=== PATIENT | male | born 1940 | race Caucasian/White ===

== ENCOUNTER 2022-07-11 09:43 | Emergency (ER) | payer MEDICARE, BC, SELFPAY ==
--- NOTE | ~2022-07-11 | XR_ITS ---
EXAMINATION: XR foot RT min 3V DATE: 07/11/2022 10:36 INDICATION: Plantar right foot pain TECHNIQUE: Dorsoplantar, two oblique and lateral views of the right foot were obtained. COMPARISON: None. FINDINGS: Alignment is normal. No fracture. Mild polyarticular osteoarthritis at the first metatarsophalangeal, calcaneocuboid and several tarsal metatarsal and interphalangeal joints. No erosions to suggest an i nflammatory arthritis. Small Achilles and plantar calcaneal spurs. IMPRESSION: 1. 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 Reviewed, dictated and finalized at location A. IMPRESSION: 1. Degenerative changes including mild polyarticular osteoarthritis in the righ t foot and small Achilles and plantar calcaneal spurs.
[2022-07-11 09:58] VITALS: BP 112/51; PULSE 86; RESP 18; TEMP 35.8; O2SAT 95
--- NOTE | 2022-07-11 10:20 | ED.EXTPRO ---
HPI - Extremity Problem General Chief complaint: Extremity Problem,Nontraumatic Stated complaint: Right Foot Pain Time Seen by Provider: 07/11/22 10:21 Source: patient and RN notes reviewed Mode of arrival: ambulatory Limitations: no limitations History of Present Illness HPI Narrative: 82-year-old male presents with concern for right foot pain. He reports pain started yesterday after working in the yard He denies any direct injury or trauma. He reports pain worsens with weightbearing and slightly worsens with flexing the ankle. He denies any redness, swelling, warmth, open skin, bruising. He reports after sleeping the pain mildly improved, however worsens again with weightbearing MD Complaint: extremity pain Related Data Home Medications Medication Instructions Recorded Confirmed aspirin 81 mg tablet 81 mg PO DAILY 07/11/22 07/11/22 atorvastatin 40 mg tablet 40 mg PO DAILY 07/11/22 07/11/22 clopidogrel 75 mg tablet 75 mg PO DAILY 07/11/22 07/11/22 fenofibrate nanocrystallized 145 145 mg PO DAILY 07/11/22 07/11/22 mg tablet ivabradine 5 mg tablet (Corlanor) 5 mg PO DAILY 07/11/22 07/11/22 nebivolol 5 mg tablet (Bystolic) 5 mg PO DAILY 07/11/22 07/11/22 sacubitril 24 mg-valsartan 26 mg 1 tablet PO DAILY 07/11/22 07/11/22 tablet (Entresto) spironolactone 25 mg tablet 25 mg PO DAILY 07/11/22 07/11/22 Allergies Allergy/AdvReac Type Severity Reaction Status Date / Time No Known Allergies Allergy Verified 07/11/22 10:03 Review of Systems Review of Systems: CONSTITUTIONAL: Denies malaise, chills, sweats, or fever. SKIN: Denies rash or itching, open skin, laceration, abrasion, redness, warmth, swelling. MUSCULOSKELETAL: Reports right foot pain NEUROLOGIC: Denies numbness, weakness All systems reviewed & are unremarkable except as noted in HPI and below PMFSH Comments At time of signature, agree with nursing past medical, surgical, social and family history. There is no relevant family history pertinent to the presenting complaint Exam Narrative: GENERAL: Well-appearing, well-nourished, and in no acute distress. HEAD: Normocephalic, atraumatic. EYES: PERRLA, conjunctivae clear NECK: Supple. CHEST: Speaks in full sentences. No respiratory distress. HEART: Regular rate and rhythm. Normal and equal peripheral pulses. EXTREMITIES: Right ankle, foot, digits have normal strength and sensation, normal range of motion. No edema or ecchymosis. 5/5 strength with digit and ankle flexion and extension. Normal sensation with sensitivity to light touch and pain. Mild midfoot pedal tenderness. No open wounds, no skin tenting, no devitalized tissue or atrophy, no trophic changes, no obvious deformity, alignment normal, nearby joints and structures intact. Distal pulses palpable and equal bilaterally, skin warm, dry, pink. Capillary refill less than 3 seconds. SKIN: Warm, dry, no rash. NEURO: Alert and oriented x3. PSYCH: Normal mood and affect Course Course Emergency Course: Patient is aware of diagnosis, understands and agrees to treatment plan. Anticipatory guidance given. Patient agrees to follow-up as directed and is aware of reasons to seek care at the emergency department. Portions of this record may have been created with voice recognition software Level of Care: Express Care Visit Vital Signs Vital signs: Vital Signs Temperature 96.5 F L 07/11/22 09:58 Pulse Rate 86 07/11/22 09:58 Respiratory Rate 18 07/11/22 09:58 Blood Pressure 112/51 L 07/11/22 09:58 Pulse Oximetry 95 07/11/22 09:58 Oxygen Delivery Room Air 07/11/22 09:58 Temperature 96.5 F L 07/11/22 09:58 Pulse Rate 86 07/11/22 09:58 Respiratory Rate 18 07/11/22 09:58 Blood Pressure 112/51 L 07/11/22 09:58 Pulse Oximetry 95 07/11/22 09:58 Oxygen Delivery Room Air 07/11/22 09:58 Reviewed. MDM - Extremity (Nontraumatic) MDM Narrative Medical decision making narrative: Patients pain is consistent with musculoske
== END 2022-07-11 10:57 | disposition home or self-care (01) ==
PROVIDERS: Emergency Provider Nurse Practitioner
DX: M77.31 Calcaneal spur, right foot (principal); I11.0 Hypertensive heart disease with heart failure; I50.9 Heart failure, unspecified; Z95.5 Presence of coronary angioplasty implant and graft; E78.00 Pure hypercholesterolemia, unspecified; I25.2 Old myocardial infarction; Z95.0 Presence of cardiac pacemaker
CPT/HCPCS: 73630; 99213; G0463

== ENCOUNTER 2023-05-17 12:23 | Emergency (ER) | payer MEDICARE, BC, SELFPAY ==
--- NOTE | ~2023-05-17 | CT_ITS ---
EXAMINATION: CT abdomen pelvis w con DATE: 05/17/2023 17:07 INDICATION: Left lower quadrant abdominal pain TECHNIQUE: Computed tomography (CT) of the abdomen and pelvis was performed with 100 mL Omnipaque-350 intravenous contrast. Automated exposure control and iterative reconstruction technique were employe d. The dose-length product was 1484.46 mGy-cm. COMPARISON: 10/07/2015 FINDINGS: Calcified left lower lobe nodule and unchanged 4 mm noncalcified right lower lobe nodule consistent w ith old granulomatous disease. Mild dependent atelectasis in the bilateral lower lobes. No pleural ef fusion. Cardiomegaly. No pericardial effusion. Atherosclerotic coronary artery calcification is. No c alcific lesion at the left ventricular apex and fatty myocardial atrophy at the apical lateral segmen t consistent with sequela chronic infarct. 3-lead cardiac pacemaker with lead tips at the right atria l appendage, right ventricular outflow tract and in a coronary vein overlying the lateral wall of lef t ventricle having traversed the coronary sinus. Small sliding-type hiatal hernia. Diffuse hepatic steatosis with a few small hepatic cysts in the left hepatic lobe measuring up to 1 c m. Multiple small splenic calcific lesions consistent with old granulomatous disease. Gallbladder and bilateral adrenal glands are normal. A few peripheral calcification is in the body and tail of the p ancreas consistent with sequela of chronic pancreatitis. Bilateral renal cortical atrophy, mild on th e left and moderate on the right. Bilateral nephrolithiasis with 3 stones measuring up to 3 mm in the left kidney and 10 mm stone at the right renal pelvis. Mild left hydronephrosis with transition poin t at the ureteropelvic junction where there is no evident obstructing stone or mass. There are couple right renal cysts the larger measuring 3.8 cm. Normal bladder and ureters. Moderate diverticulosis a long the descending and sigmoid colon with mild inflammatory stranding surrounding a diverticulum at the mid sigmoid colon consistent with diverticulitis. Small bowel and appendix are normal. No abscess or free intraperitoneal gas or fluid. No pathologically enlarged abdominal or pelvic lymphadenopathy . There is calcified atherosclerosis of the aorta and many of the other arteries. Moderate lumbar sp ondylosis with anterior fusion at L5-S1. IMPRESSION: 1. Radiographically uncomplicated sigmoid diverticulitis. 2. Bilateral nonobstructing nephrolithiasis which does not contribute to a left UPJ obstruction with mild hydronephrosis. 3. Cardiomegaly with coronary artery disease and myocardial scarring and calcification consistent wit h prior infarct at the apical and apical lateral segments of the left ventricle. 4. Stigmata of chronic pancreatitis. Reviewed, dictated and finalized at location A. IMPRESSION: 1. Radiographically uncomplicated sigmoid diverticulitis. 2. Bilateral nonobstructing nephrolithiasis which does not contribute to a left UPJ obstruction with mild hydronephrosis. 3. Cardiomegaly with coronary artery disease and myocardial scarring and calcif ication consistent with prior infarct at the apical and apical lateral segments of the left ventricle. 4. Stigmata of chronic pancreatitis.
[2023-05-17 12:27] VITALS: BP 124/54; PULSE 98; RESP 20; TEMP 36.1; O2SAT 94
[2023-05-17 12:55] LABS: Basophils Absolute Auto 0.1 K/mm3 (0.0-0.1); Basophils Percent Auto 1.3 % (0.2-1.2); Eosinophils Absolute Auto 0.2 K/mm3 (0-0.3); Eosinophils Percent Auto 3.8 % (0-4.4); Hematocrit 38.7 % (42.0-52.0); Hemoglobin 12.4 g/dL (14.0-18.0); Immature Granulocyte Absolute 0.03 K/mm3 (0.00-0.031); Immature Granulocyte Percent A 0.8 % (0-0.5); Lymphocytes Absolute Auto 1.05 K/mm3 (0.9-3.2); Lymphocytes Percent Auto 26.9 % (18.3-44.2); Mean Corpuscular Hemoglobin 33.1 pg (26-34); Mean Corpuscular Volume 103.2 fl (80-100); Monocytes Absolute Auto 0.3 K/mm3 (0.1-0.6); Monocytes Percent Auto 6.9 % (2.6-8.5); Neutrophils Absolute Auto 2.4 K/mm3 (1.3-6.7); Neutrophils Percent Auto 60.3 % (45.5-73.1); Platelet Count Result 190 k/mm3 (150-375); Red Blood Count 3.75 M/mm3 (4.6-6.20); Red Cell Distribution Width 13.1 % (11.5-14.5); White Blood Count 3.9 K/mm3 (4.5-10.0)
[2023-05-17 13:07] LABS: Alanine Aminotransferase 30 U/L (6-50); Albumin Level 4.3 g/dL (3.5-5.1); Alkaline Phosphatase 40 U/L (38-126); Anion Gap 8 mmol/L (8-16); Aspartate Amino Transferase 35 U/L (17-59); Bilirubin,Total 0.4 mg/dL (0.2-1.3); Blood Urea Nitrogen 34 mg/dL (9-20); Calcium 9.5 mg/dL (8.4-10.2); Carbon Dioxide 24 mmol/L (22-30); Chloride 107 mmol/L (98-107); Estimated CRCL calculation 47 ml/min; Estimated Glomerular Filt Rate 48; Glucose 165 mg/dL (65-110); INR 1.1; Potassium 4.2 mmol/L (3.4-5.0); Prothrombin Time 14.4 Seconds (11.1-14.7); Sodium 139 mmol/L (137-145)
[2023-05-17 13:08] LABS: Partial Thromboplastin Time 21.4 SECONDS (22.3-36.8)
--- NOTE | 2023-05-17 16:34 | ED.GENADULT ---
HPI - General Adult General Chief complaint: GI Bleed Stated complaint: blood in stool, difficulty urinating Time Seen by Provider: 05/17/23 16:02 History of Present Illness HPI narrative: 83-year-old male presented to the emergency department for evaluation of dark tarry stool. Patient does take Plavix and aspirin for cardiac reasons. Patient states that on Tuesday he was having some dark tarry stool this progressed through Tuesday and did start to improve today. Patient reports he has had some lower abdominal cramping. Patient denies any prior history of diverticulitis or gastritis. Patient has had previous colonoscopies but has not had one approximate 10 years. Related Data Home Medications Medication Instructions Recorded Confirmed aspirin 81 mg tablet 81 mg PO DAILY 07/11/22 07/11/22 atorvastatin 40 mg tablet 40 mg PO DAILY 07/11/22 07/11/22 clopidogrel 75 mg tablet 75 mg PO DAILY 07/11/22 07/11/22 fenofibrate nanocrystallized 145 145 mg PO DAILY 07/11/22 07/11/22 mg tablet ivabradine 5 mg tablet (Corlanor) 5 mg PO DAILY 07/11/22 07/11/22 nebivolol 5 mg tablet (Bystolic) 5 mg PO DAILY 07/11/22 07/11/22 sacubitril 24 mg-valsartan 26 mg 1 tablet PO DAILY 07/11/22 07/11/22 tablet (Entresto) spironolactone 25 mg tablet 25 mg PO DAILY 07/11/22 07/11/22 Allergies Allergy/AdvReac Type Severity Reaction Status Date / Time No Known Allergies Allergy Verified 07/11/22 10:03 Review of Systems Review of Systems: All systems reviewed & are unremarkable except as noted in HPI and below Exam Narrative: APPEARANCE: Well appearing, no pain, no distress, well-nourished. HEAD: normocephalic, atraumatic. EYES: PERRLA/EOMI, conjunctivae clear. NOSE: Normal no drainage NECK: Supple. No adenopathy, no masses. RESPIRATORY: Airway patent, respirations nonlabored. Clear to auscultation bilaterally, no rales, rhonchi, wheezing. CARDIOVASCULAR: Regular rate and rhythm without murmurs rubs or gallops. ABDOMINAL: Soft, nontender, nondistended, normal bowel sounds, left lower quadrant pain Rectal exam: Hemoccult negative MUSCULOSKELETAL: Moves all extremities. Strength/ROM intact, No edema, No calf tenderness. NEURO: Alert. Cranial nerves II through XII intact. Grossly intact SKIN: Warm, dry. Normal Color Course Course Emergency Course: 83-year-old male present emerged department for evaluation of Dr. Schuler. Patient was Hemoccult negative on the digital rectal exam today. Patient is afebrile with a leukocytosis of 3.9 and a hemoglobin of 12.4. Patient has a BUN of 34 and creatinine of 1.4. Patient was Hemoccult negative. Patient's hemoglobin was stable. CT did show evidence of diverticulitis. Patient was updated results of the work-up and patient does feel comfortable to plan for discharge to home. Patient was advised to stop taking Aleve and ibuprofen. Patient was advised to start taking Prilosec and was encouraged of close follow-up with Dr. Stewart who is on-call for GI. Patient was started on Augmentin will be discharged home on Augmentin. All questions concerns were addressed and patient was updated on reasons to return to the emergency department. Vital Signs Vital signs: Vital Signs Temperature 96.9 F L 05/17/23 12:27 Pulse Rate 98 05/17/23 12:27 Respiratory Rate 20 05/17/23 12:27 Blood Pressure 124/54 L 05/17/23 12:27 Pulse Oximetry 94 05/17/23 12:27 Oxygen Delivery Room Air 05/17/23 12:27 Temperature 96.9 F L 05/17/23 12:27 Pulse Rate 73 05/17/23 18:27 Respiratory Rate 23 H 05/17/23 18:27 Blood Pressure 133/83 05/17/23 18:27 Pulse Oximetry 98 05/17/23 18:27 Oxygen Delivery Room Air 05/17/23 12:27 Medical Decision Making Differential Diagnosis Differential Diagnosis: Diverticuli, GI bleeding, kidney stone, UTI, colitis Vital Signs Vital Signs: Vital Signs Temperature 96.9 F L 05/17/23 12:27 Pulse Rate 98 05/17/23 12:27 Respiratory Rate 20
[2023-05-17 16:40] VITALS: BP 145/72; PULSE 65; RESP 13; O2SAT 97
[2023-05-17] MEDS: PANTOPRAZOLE SODIUM IV 40 MG VIAL IV PUSH (16:41)
[2023-05-17 17:31] VITALS: BP 122/60; PULSE 65; RESP 23; O2SAT 95
[2023-05-17] MEDS: AMOXICILLIN/CLAVULANATE K 875-125 MG TAB 1 TABLET PO (18:16)
[2023-05-17 18:27] VITALS: BP 133/83; PULSE 73; RESP 23; O2SAT 98
== END 2023-05-17 18:29 | disposition home or self-care (01) ==
PROVIDERS: Emergency Provider Emergency Medicine
DX: K57.32 Diverticulitis of large intestine without perforation or abscess without bleeding (principal); Z79.02 Long term (current) use of antithrombotics/antiplatelets; Z79.82 Long term (current) use of aspirin
CPT/HCPCS: 36415; 74177; 80053; 85025; 85610; 85730; 86850; 86900; 86901; 96374; 99284; A9270; C9113; Q9967

== ENCOUNTER 2023-06-22 00:10 | Day surgery (SDC) | payer MEDICARE, BC, SELFPAY ==
[2023-06-15 08:39] VITALS: BMI 33.5
--- NOTE | 2023-06-21 17:12 | P.HP_ITS ---
History of Present Illness History of Present Illness Consent: Risks, benefits, and alternatives have been discussed and questions answered. Patient agrees to proceed with procedure. Chief complaint: melena Narrative: Juvenal Morales is a 83 year old male being investigated for anemia. He had black stools for 2 days. He was out of town and went to an emergency room in [place]. Apparently Hemoccult test done there was negative. Review of Systems Review of Systems: All systems reviewed & are unremarkable except as noted in HPI and below PMFSH Social History Social History Smoking status: Former smoker Tobacco type: cigarettes Alcohol intake: current Alcohol use details: occasionally Substance use: never Substance use type: does not use Living arrangements: with family Spiritual care concerns: No Meds Home Medications and Allergies Home Medications Medication Instructions Recorded Confirmed Type atorvastatin 40 mg tablet 40 mg PO DAILY 07/11/22 06/22/23 History clopidogrel 75 mg tablet 75 mg PO DAILY 07/11/22 06/22/23 History fenofibrate nanocrystallized 145 145 mg PO DAILY 07/11/22 06/22/23 History mg tablet ivabradine 5 mg tablet (Corlanor) 5 mg PO DAILY 07/11/22 06/22/23 History nebivolol 5 mg tablet (Bystolic) 10 mg PO DAILY 07/11/22 06/22/23 History sacubitril 24 mg-valsartan 26 mg 1 tablet PO DAILY 07/11/22 06/22/23 History tablet (Entresto) spironolactone 25 mg tablet 25 mg PO DAILY 07/11/22 06/22/23 History aspirin 325 mg tablet 325 mg PO DAILY 06/15/23 06/22/23 History Allergies Allergy/AdvReac Type Severity Reaction Status Date / Time No Known Allergies Allergy Verified 06/22/23 11:19 Exam Const: General: alert Orientation/consciousness: patient oriented x3 Resp: Auscultation: clear to auscultation bilaterally Cardio: Rhythm: regular rhythm GI: GI Palp: Yes Soft to palpation and No Tenderness to palpation present (GI) Neuro: General: patient oriented x3 Assessment and Plan Assessment and plan (1) Anemia: Code(s): D64.9 - Anemia, unspecified Status: Acute Assessment and Plan: EGD with possible biopsy or dilatation or cautery.Colonoscopy with possible biopsy or polypectomy or cautery or injection of substances.
[2023-06-22 11:12] VITALS: BP 108/57; PULSE 83; RESP 18; TEMP 35.8; O2SAT 94; BMI 32.3
[2023-06-22] MEDS: LACTATED RINGERS 1,000 ML 150 ML IV CONT (11:36)
--- NOTE | 2023-06-22 11:55 | P.PNAN_ITS ---
Anes - Initial Pre Proc Eval Procedure: Operation Date: 06/22/23 12:30 Proposed Procedures p Esophagogastroduodenoscopy & Colonoscopy - Armani Stewart MD Date/Time: 06/22/23 11:55 Surgeon: Armani Stewart MD Pre Op Diagnosis: melena Patient Data Age: 83 Gender: M Height: 1.85 m Weight: 111.1 kg Last Vital Signs Temp 96.4 F L 06/22/23 11:12 Pulse 83 06/22/23 11:12 Resp 18 06/22/23 11:12 BP 108/57 L 06/22/23 11:12 Pulse Ox 94 06/22/23 11:12 O2 Del Method Room Air 06/22/23 11:12 Allergies Allergy/AdvReac Type Severity Reaction Status Date / Time No Known Allergies Allergy Verified 06/22/23 11:19 Home Medications Medication Instructions Recorded Confirmed Type atorvastatin 40 mg tablet 40 mg PO DAILY 07/11/22 06/22/23 History clopidogrel 75 mg tablet 75 mg PO DAILY 07/11/22 06/22/23 History fenofibrate nanocrystallized 145 145 mg PO DAILY 07/11/22 06/22/23 History mg tablet ivabradine 5 mg tablet (Corlanor) 5 mg PO DAILY 07/11/22 06/22/23 History nebivolol 5 mg tablet (Bystolic) 10 mg PO DAILY 07/11/22 06/22/23 History sacubitril 24 mg-valsartan 26 mg 1 tablet PO DAILY 07/11/22 06/22/23 History tablet (Entresto) spironolactone 25 mg tablet 25 mg PO DAILY 07/11/22 06/22/23 History aspirin 325 mg tablet 325 mg PO DAILY 06/15/23 06/22/23 History Patient hx anesthesia problems: none Family hx anesthesia problems: none Results Review: All pre-operative results and documents have been reviewed as part of the pre- operative evaluation. [facility] Social History Social History Smoking status: Former smoker Tobacco type: cigarettes Alcohol intake: current Alcohol use details: occasionally Substance use: never Substance use type: does not use Living arrangements: with family Spiritual care concerns: No Anes - Eval Final PreProcedure Day of Procedure 06/22/23 11:55 Patient weight: obese Heart: regular rate and rhythm Lungs: clear to auscultation Airway: Mallampati scale class III Neurological: alert and oriented Last oral intake: >/= 8 hours ASA classification: III Emergent: no Anesthetic plan: proceed Anesthesia type and monitoring: general GIVS and standard monitoring Results Review: All pre-operative results and documents have been reviewed as part of the pre- operative evaluation. Informed Consent: The patient's anesthetic plan and its attendant risks and benefits were discussed with the patient/family/POA. Questions were solicited and answers provided to the satisfaction of the patient/family/POA.
[2023-06-22 12:53] VITALS: BP 86/53; PULSE 70; RESP 15; O2SAT 93
--- NOTE | 2023-06-22 12:55 | SUR.OPER ---
Dr. Stewart made aware of positive H. Pylori.
[2023-06-22 13:03] VITALS: BP 99/51; PULSE 70; RESP 15; O2SAT 93
[2023-06-22 13:10] VITALS: BP 101/61; PULSE 68; RESP 18; O2SAT 100
== END 2023-06-22 13:42 | disposition home or self-care (01) ==
PROVIDERS: Visit Provider Internal Medicine Gastroenterology
PROC: 0DJ08ZZ Inspection of Upper Intestinal Tract, Via Natural or Artificial Opening Endoscopic (ICD-10-PCS; CPT 43235; principal; 2023-06-22 12:30)
DX: D64.9 Anemia, unspecified (principal); K29.50 Unspecified chronic gastritis without bleeding; B96.81 Helicobacter pylori [H. pylori] as the cause of diseases classified elsewhere; K21.00 Gastro-esophageal reflux disease with esophagitis, without bleeding; K29.80 Duodenitis without bleeding; K57.30 Diverticulosis of large intestine without perforation or abscess without bleeding; D12.3 Benign neoplasm of transverse colon; Z87.891 Personal history of nicotine dependence; Z79.82 Long term (current) use of aspirin; Z79.02 Long term (current) use of antithrombotics/antiplatelets; E66.9 Obesity, unspecified; Z68.32 Body mass index [BMI] 32.0-32.9, adult
CPT/HCPCS: 45385; 43235; 87081; 88305; J2704; J7120

== ENCOUNTER 2023-09-11 08:50 | Emergency (ER) | payer MEDICARE, BC, SELFPAY ==
--- NOTE | ~2023-09-11 | XR_ITS ---
XR hip LT 2V w AP pelvis 09/11/2023 09:56 Indication: Left hip pain Procedure: 3 views left hip including AP pelvis Comparison: No prior studies for comparison. Findings: There is moderate osteoarthritis of the hips. No fracture or traumatic malalignment. There is atherosclerosis. There is an endovascular stents in the femoral locations bilaterally. Impression: 1: Moderate bilateral osteoarthritis of the hips. Reviewed, dictated and finalized at location A. ER ALUMINUM SHEET Impression: 1: Moderate bilateral osteoarthritis of the hips.
[2023-09-11 08:54] VITALS: BP 124/75; PULSE 73; RESP 18; TEMP 36.6; O2SAT 96
--- NOTE | 2023-09-11 09:24 | ED.GENADULT ---
HPI - General Adult General Chief complaint: Unspecified Stated complaint: left leg pain Time Seen by Provider: 09/11/23 09:23 Source: patient Mode of arrival: ambulatory Limitations: no limitations History of Present Illness HPI narrative: Juvenal is an 83-year-old male patient presenting to the ER today with complaints of left hip/leg pain. Pain started 2 days ago. Reports he was hanging [place] lights earlier this week otherwise no known injury. He reports that the pain started after he got out of bed 2 days ago. Pain feels as though his to lateral hip and radiates down to the knee cap. Related Data Home Medications Medication Instructions Recorded Confirmed atorvastatin 40 mg tablet 40 mg PO DAILY 07/11/22 06/22/23 clopidogrel 75 mg tablet 75 mg PO DAILY 07/11/22 06/22/23 fenofibrate nanocrystallized 145 145 mg PO DAILY 07/11/22 06/22/23 mg tablet ivabradine 5 mg tablet (Corlanor) 5 mg PO DAILY 07/11/22 06/22/23 nebivolol 5 mg tablet (Bystolic) 10 mg PO DAILY 07/11/22 06/22/23 sacubitril 24 mg-valsartan 26 mg 1 tablet PO DAILY 07/11/22 06/22/23 tablet (Entresto) spironolactone 25 mg tablet 25 mg PO DAILY 07/11/22 06/22/23 aspirin 325 mg tablet 325 mg PO DAILY 06/15/23 06/22/23 Allergies Allergy/AdvReac Type Severity Reaction Status Date / Time No Known Allergies Allergy Verified 09/11/23 09:31 Review of Systems Review of Systems: Pertinent positives per HPI. Patient denies any fever, chills, rash, headache, visual changes, dizziness, cough, runny nose, sore throat, shortness of breath, chest pain, palpitations, nausea, vomiting, diarrhea, constipation, abdominal pain, or any urinary issues. [facility] Social History Social History Smoking status: Former smoker Tobacco type: cigarettes Alcohol intake: current Alcohol use details: occasionally Substance use: never Substance use type: does not use Living arrangements: with family Spiritual care concerns: No Comments At the time of my signature, I reviewed and agree with the nursing past medical, surgical, social, and family history. There is no relevant family history pertinent to the patient complaint. Exam Narrative: General: Well-developed, well nourished, in no apparent distress Head: Normocephalic, atraumatic. Cardio: Regular rate and rhythm, s1 and s2 normal, no murmur appreciated. Resp: Clear to auscultation bilaterally, no rhonchi, rales, wheezing or rubs. Musculoskeletal: No deformity, tender to palpation over the posterior and lateral hip and into the anterior hip/groin with pain radiating and to the front of the leg down to the knee cap, mild discomfort with flexion of the hip as well as internal and external rotation, grossly normal range of motion, muscle strength strong and equal, peripheral pulse strong, no edema, no cyanosis, normal gait and station Course Course Emergency Course: Portions of this record may have been created with voice recognition software. Vital Signs Vital signs: Vital Signs Temperature 36.6 C 09/11/23 08:54 Pulse Rate 73 09/11/23 08:54 Respiratory Rate 18 09/11/23 08:54 Blood Pressure 124/75 09/11/23 08:54 Pulse Oximetry 96 09/11/23 08:54 Oxygen Delivery Room Air 09/11/23 08:54 Temperature 36.6 C 09/11/23 08:54 Pulse Rate 84 09/11/23 10:21 Respiratory Rate 20 09/11/23 10:21 Blood Pressure 107/65 09/11/23 10:21 Pulse Oximetry 100 09/11/23 10:21 Oxygen Delivery Room Air 09/11/23 08:54 Vital signs reviewed Medical Decision Making MDM Narrative Medical decision making narrative: At the time of visit patient is resting comfortably on the exam stretcher. Patient appears to be nontoxic. X-ray of the left hip and pelvis was performed with no sign of acute fracture or malalignment. Does have moderate bilateral osteoarthritis to the hips. I suspect patient has hip pain with inflamma
[2023-09-11] MEDS: HYDROcodone/acetaminophen (*CRX) 5-325 MG TABLET 1 TAB PO (10:20)
[2023-09-11 10:21] VITALS: BP 107/65; PULSE 84; RESP 20; O2SAT 100
== END 2023-09-11 10:23 | disposition home or self-care (01) ==
PROVIDERS: Emergency Provider Nurse Practitioner Family
DX: M16.0 Bilateral primary osteoarthritis of hip (principal); M54.32 Sciatica, left side; Z79.82 Long term (current) use of aspirin; Z87.891 Personal history of nicotine dependence
CPT/HCPCS: 73502; 99283; A9270

== ENCOUNTER 2023-09-23 12:41 | Outpatient (CLI) | payer MEDICARE, BC, SELFPAY ==
--- NOTE | ~2023-09-23 | XR_ITS ---
XR abdomen/kub 1V 09/23/2023 13:05 Indication: Hydronephrosis. Procedure: KUB Comparison: CT dated 05/17/2022 Findings: there is a 1.4 x 0.9 cm stone and the expected location the right renal pelvis. Bowel gas p attern nonobstructive. There are splenic arterial calcifications. Moderate lumbar spondylosis. There are pelvic phleboliths. Impression: 1: Right nephrolithiasis. Reviewed, dictated and finalized at location A. ER [employer] Impression: 1: Right nephrolithiasis.
--- NOTE | ~2023-09-23 | NM_ITS ---
EXAMINATION: ELVIRA harper renal scan DATE: 09/23/2023 13:50 INDICATION: Bilateral nephrolithiasis TECHNIQUE: 10.8 mCi Tc-99m MAG3 was administered IV. 40 mg furosemide was administered IV immediatel y afterward. The patient was scanned in the supine position. A posterior abdominal radionuclide angio gram was obtained. A subsequent time course of static images of the kidneys, ureters, and bladder was obtained. COMPARISON: None FINDINGS: The posterior abdominal radionuclide angiogram and sequential static images show normal position, and morphology of the kidneys. There is asymmetric mild atrophy of the right kidney relative to the left . Peak renal parenchymal uptake was 7.4 min in left kidney and 5.4 min in right kidney (normal peak 3 -5 minutes). The relative early renal uptake was 74% on the left and 26% on the right (<40% is abnor mal). No abnormalities of the ureters or bladder are seen. T1/2 for clearance of activity from the left kidney and proximal collecting system was 15 minutes. T1/2 for clearance of activity from the right kidney and proximal collecting system was 17 minutes. Notes on interpretation: T1/2 <10 minutes is normal, 10-15 minutes is low grade obstruction of questi onable clinical significance, 15-20 minutes is partial obstruction that is likely clinically signific ant, >20 minutes is high grade obstruction. Note that false positives may be seen with supine positio duarte, dehydration, severely dilated nonobstructed kidney, atonic collecting system, poor renal functi on, and chronic furosemide use. IMPRESSION: 1. Asymmetric renal function with right kidney contributing only 26% of total renal function 2. Delayed activity clearance from both kidneys consistent with low-grade obstruction of questionabl e significance at the left kidney with mild left hydronephrosis evident on prior CT. The delayed jan jose maria slightly greater at the right kidney which in isolation could be due to a clinically significan t partial obstruction. A stone is seen at the right renal pelvis on the prior CT but there was no clarence dent hydronephrosis at this time. Delayed clearance however could also be due to poor renal function which is suggested given the decreased size, delayed time to peak and relative decreased renal functi on when compared with the left kidney. Reviewed, dictated and finalized at location A. ER SALES REP IMPRESSION: 1. Asymmetric renal function with right kidney contributing only 26% of total renal function 2. Delayed activity clearance from both kidneys consistent with low-grade obst ruction of questionable significance at the left kidney with mild left hydronep hrosis evident on prior CT. The delayed clearance slightly greater at the right kidney which in isolation could be due to a clinically significant partial obs truction. A stone is seen at the right renal pelvis on the prior CT but there w as no evident hydronephrosis at this time. Delayed clearance however could also be due to poor renal function which is suggested given the decreased size, del ayed time to peak and relative decreased renal function when compared with the left kidney.
== END 2023-09-23 12:42 | disposition home or self-care (01) ==
PROVIDERS: PCP Family Medicine; Visit Provider Urology
DX: N13.30 Unspecified hydronephrosis (principal); N20.0 Calculus of kidney
CPT/HCPCS: 74018; 78708; A9562; J1940; J2785

== ENCOUNTER 2023-12-21 13:14 | Outpatient (CLI) | payer MEDICARE, BC, SELFPAY ==
--- NOTE | ~2023-12-21 | XR_ITS ---
EXAMINATION: XR sacroiliac joints min 3V INDICATION: Chronic sacroiliac pain TECHNIQUE: Three views of the sacroiliac joints are obtained. COMPARISON: 09/11/2023 FINDINGS: Bone alignment is normal. There is no fracture. No abnormal erosion or sclerosis of the sac roiliac joints identified. An endovascular stent is noted in the proximal right leg. There is moderat e osteoarthritis of the hips. IMPRESSION: 1. Unremarkable sacroiliac joints. Reviewed, dictated and finalized at location F.
--- NOTE | ~2023-12-21 | XR_ITS ---
EXAMINATION: XR lumbar spine min 4V DATE: 12/21/2023 13:42 INDICATION: Low back pain TECHNIQUE: Anteroposterior, lateral, and bilateral oblique views of the lumbar spine, and cone-down l ateral view of the lumbosacral junction were obtained. COMPARISON: CT, 05/17/2023 FINDINGS: Bone alignment is normal. There is no fracture. There is severe loss of intervertebral disc space height at L5-S1, moderate loss of disc space height at L1-2 and mild loss of disc space height throughout the remainder of the lumbar spine. The vertebral body heights are maintained. There is mo derate facet joint osteoarthritis throughout the lumbar spine. Calcified atherosclerosis is noted. IMPRESSION: 1. Moderate to severe lumbar spondylosis without acute findings or significant interval change. Reviewed, dictated and finalized at location F.
== END 2023-12-21 13:15 | disposition home or self-care (01) ==
PROVIDERS: PCP Family Medicine; Visit Provider Physician Assistant
DX: M43.06 Spondylolysis, lumbar region (principal); R26.81 Unsteadiness on feet
CPT/HCPCS: 72110; 72202

== ENCOUNTER 2023-12-28 11:34 | Outpatient (CLI) | payer MEDICARE, BC, SELFPAY ==
--- NOTE | ~2023-12-28 | XR_ITS ---
XR ankle RT min 3V DATE: 12/28/2023 12:05 INDICATION: Fall several days ago. Persistent pain. TECHNIQUE: 3 views COMPARISON: None FINDINGS: There is a linear oblique fracture through the distal fibular shaft with approximately 2.5 mm lateral and 3 mm posterior displacement of the distal fragment, and no significant angulation. The medial and posterior malleoli are intact. Ankle mortise appears maintained. IMPRESSION: Distal fibular shaft fracture Reviewed, dictated and finalized at location B.
== END 2023-12-28 11:35 | disposition home or self-care (01) ==
PROVIDERS: PCP Family Medicine; Visit Provider Physician Assistant
DX: S82.831A Other fracture of upper and lower end of right fibula, initial encounter for closed fracture (principal)
CPT/HCPCS: 73610

== ENCOUNTER 2024-06-02 20:42 | Emergency (ER) | payer MEDICARE, BC, SELFPAY ==
--- NOTE | ~2024-06-02 | XR_ITS ---
Clinical Indication: Weakness PA and lateral views of the chest: Comparison: 01/07/2008 Findings: Probable mild left basilar atelectatic change. Lungs are otherwise clear. Cardiomediastina l silhouette is stable, now with pacemaker device. Stable calcified nodular opacity projecting over t he left heart. Bones and soft tissues are unremarkable. Impression: Probable mild left basilar atelectatic change, otherwise clear lungs. Stable cardiomegaly, with pacemaker device. Reviewed, dictated and finalized at location M. Impression: Probable mild left basilar atelectatic change, otherwise clear lungs. Stable cardiomegaly, with pacemaker device.
[2024-06-02 20:58] VITALS: PULSE 80; RESP 16; O2SAT 92
--- NOTE | 2024-06-02 21:56 | ECG_ITS ---
Test Date: 2024-06-02 22:19:26 Measurements Intervals [place] Rate: 80 P: 91 GA: 167 QRS: 138 QRSD: 142 T: 68 QT: 431 QTc: 499 Interpretive Statements ATRIAL-SENSE ELECTRONIC VENTRICULAR PACEMAKER WITH INHIBITION VENTRICULAR COUPLET AND VENTRICULAR PREMATURE COMPLEX NO FURTHER INTERPRETATION IS POSSIBLE BORDERLINE ECG No previous ECG available for comparison Electronically Signed On 06-03-2024 08:38:39 CDT by Mele Gonzalez D.O.
[2024-06-02 22:36] LABS: Basophils Percent Auto 0.3 % (0.2-1.2); Eosinophils Absolute Auto 0.1 K/mm3 (0-0.3); Eosinophils Percent Auto 0.5 % (0-4.4); Hematocrit 38.3 % (42.0-52.0); Hemoglobin 12.9 g/dL (14.0-18.0); Immature Granulocyte Absolute 0.04 K/mm3 (0.00-0.031); Immature Granulocyte Percent A 0.4 % (0-0.5); Immature Platelet Fraction Pct 3.1 % (0.9-11.2); Lymphocytes Absolute Auto 1.03 K/mm3 (0.9-3.2); Lymphocytes Percent Auto 11.1 % (18.3-44.2); Mean Corpuscular HGB Conc 33.7 g/dl (32-36); Mean Corpuscular Hemoglobin 33.5 pg (26-34); Mean Corpuscular Volume 99.5 fl (80-100); Mean Platelet Volume 9.9 fl (7.4-10.4); Monocytes Percent Auto 10.5 % (2.6-8.5); Neutrophils Absolute Auto 7.1 K/mm3 (1.3-6.7); Neutrophils Percent Auto 77.2 % (45.5-73.1); Platelet Count Result 149 k/mm3 (150-375); Red Blood Count 3.85 M/mm3 (4.6-6.20); Red Cell Distribution Width 13.3 % (11.5-14.5); White Blood Count 9.3 K/mm3 (4.5-10.0)
[2024-06-02 22:45] LABS: Sodium 132 mmol/L (137-145)
[2024-06-02 22:51] LABS: Alanine Aminotransferase 29 U/L (6-50); Albumin Level 4.4 g/dL (3.5-5.1); Alkaline Phosphatase 88 U/L (38-126); Anion Gap 12 mmol/L (4-12); Aspartate Amino Transferase 48 U/L (17-59); Bilirubin,Total 0.8 mg/dL (0.2-1.3); Blood Urea Nitrogen 32 mg/dL (9-20); Calcium 9.9 mg/dL (8.4-10.2); Carbon Dioxide 22 mmol/L (22-30); Chloride 98 mmol/L (98-107); Estimated CRCL calculation 41 ml/min; Estimated Glomerular Filt Rate 52; Glucose 127 mg/dL (65-110); Potassium 4.1 mmol/L (3.4-5.0)
[2024-06-02 23:07] LABS: Add Urine Microscopic? YES; Appearance Urine Cloudy (Clear); Bacteria Urine None Seen /hpf; Bilirubin Urine Negative (Negative); Blood Urine Non-Hemolyzed Trace (Negative); Color Urine Dark Yellow (Yellow); Glucose Urine UA Negative (Negative); Ketones Urine Trace mg/dL (Negative); Leukocyte Esterase Ur Negative LEU/UL (Negative); Need Manual Microscopic Reviewed; Nitrate Urine Negative (Negative); Non Pathogenic Casts >20; Protein Urine 1+ mg/dL (Negative); Specific Grav Ur 1.019 (1.001-1.035); Squamous Epithelial Cell Urine None Seen /hpf (Few); WBC Urine 0-5 /hpf (0-3); pH Urine 5.5 (5.0-9.0)
[2024-06-02 23:50] VITALS: PULSE 65
[2024-06-02] MEDS: SODIUM CHLORIDE 0.9% IV 1,000 ML 999 ML IV CONT (23:55)
--- NOTE | 2024-06-03 00:35 | ED.DIZZY ---
HPI - Dizziness General Chief Complaint: Dizziness Stated Complaint: weakness Time Seen by Provider: 06/02/24 22:48 History of Present Illness HPI Narrative: 84-year-old male presenting with generalized weakness. States that he had surgery on his right ankle approximately 2-3 days ago. He has been recovering at home and today he had an episode of generalized weakness. States that he has been constipated due to the oxycodone that he has been taking so he took some laxatives. After this he just felt weak all over so he called his doctor who advised that he call an ambulance to bring him in. He denies focal weakness. No lightheadedness, chest pain, shortness of breath. No vomiting or fevers. No worsening or new pain in his right leg. States that since being here he has actually felt normal. States that his daughter is concerned that he has not been drinking any water for at least the last day. Related Data Home Medications Medication Instructions Recorded Confirmed atorvastatin 40 mg tablet 40 mg PO DAILY 07/11/22 04/11/24 clopidogrel 75 mg tablet 75 mg PO DAILY 07/11/22 04/11/24 ivabradine 5 mg tablet (Corlanor) 5 mg PO DAILY 07/11/22 04/11/24 spironolactone 25 mg tablet 25 mg PO DAILY 07/11/22 04/11/24 fenofibrate nanocrystallized 145 145 mg PO DAILY 01/03/24 04/11/24 mg tablet (Tricor) lisinopril 10 mg tablet 10 mg PO DAILY 01/03/24 04/11/24 sacubitril 24 mg-valsartan 26 mg 1 tablet PO BID 01/03/24 04/11/24 tablet (Entresto) Allergies Allergy/AdvReac Type Severity Reaction Status Date / Time No Known Allergies Allergy Verified 04/11/24 10:04 Review of Systems Review of Systems: All systems reviewed & are unremarkable except as noted in HPI and below [facility] Past Medical History Medical History CHF (congestive heart failure) Coronary artery disease ICD (implantable cardioverter-defibrillator) in place Ischemic cardiomyopathy LBBB (left bundle branch block) PAD (peripheral artery disease) [employer]AGE [employer]ATOR [employer]. 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 Surgical History Surgical History H/O cervical spine surgery S/P CABG x 5 Family History Family History Father Heart disease Mother Alzheimer disease Grandparent Stomach cancer Sibling Alzheimer disease Social History Social History Smoking status: Former smoker Tobacco type: cigarettes Alcohol intake: current Alcohol use details: occasionally Substance use: never Substance use type: does not use Do You Feel Safe in your Home?: Yes Lack of Transportation: No Lack of Food: Never True Current Housing: I Have Housing Concerned About Future Housing: No Difficulty Paying Gas/Electric Bills: No Difficulty Paying for Meds: No Currently Unemployed: No Education: Associate Degree Difficulty w/ Childcare or Family Care: No Living arrangements: with family Occupation/Education: retired Gender identity (if verbalized by the patient): Male Spiritual care concerns: No Exam Narrative: GENERAL: Well-appearing, no acute distress, pleasant cooperative HEAD: Normocephalic, atraumatic. EYES: PERRLA and EOMI. ENT: Mucous membranes dry NECK: Supple. CHEST: Clear to auscultation. No respiratory distress. HEART: Regular rate and rhythm ABDOMEN: Soft, nontender, nondistended EXTREMITIES: Right lower extremity is splinted SKIN: Warm, dry, no rash. NEURO: No focal deficits. Alert and oriented x3. PSYCH: Normal mood and affect. Course Vital Signs Vital signs: Vital Signs Pulse Rate 80 06/02/24 20:58 Respiratory Rate 16 06/02/24 20:58 Pulse Oximetry 92 06/02/24 20:58 Oxygen Delivery Room Air
[2024-06-03 00:43] VITALS: BP 126/56; PULSE 76; RESP 15; TEMP 36.4; O2SAT 96
== END 2024-06-03 02:30 | disposition home or self-care (01) ==
PROVIDERS: Emergency Provider Emergency Medicine; PCP Family Medicine
DX: E86.0 Dehydration (principal); M62.81 Muscle weakness (generalized); I50.9 Heart failure, unspecified; I25.10 Atherosclerotic heart disease of native coronary artery without angina pectoris; Z87.891 Personal history of nicotine dependence
CPT/HCPCS: 36415; 71046; 80053; 81001; 85025; 85055; 93005; 96360; 99284; A4565; J7030

== ENCOUNTER 2025-07-04 13:49 | Outpatient (CLI) | payer MEDICARE, BC, SELFPAY ==
--- NOTE | ~2025-07-04 | PE_ITS ---
EXAMINATION: PET_PETPSMAST_PT DATE: 07/04/2025 15:51 INDICATION: Prostate cancer. TECHNIQUE: 4.790 mCi of Ga-68 gozetotide was administered intravenously. Low dose computed tomography (CT) images were acquired from the base of the brain to the proximal thighs for attenuation correction and anatomic localization. Automated exposure control was employed. Dose-length product (DLP) was 1231 mGy- cm. Positron emission tomography (PET) images were acquired in the same distribution. COMPARISON: None FINDINGS: Head/neck: There are no pathologically enlarged lymph nodes. There is increased activity in a normal-sized left supraclavicular lymph node. Right submandibular gland is absent. There are many sclerotic lesions of bone with increased activity. Chest: The lungs demonstrate mild atelectasis. Calcified left lung nodules and calcified left hilar mediastinal lymph nodes are consistent with old granulomatous disease. No pleural effusion. Cardiomegaly is noted. 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 There are coronary artery calcifications. No pericardial effusion. There is a left chest pacer with leads in right atrium, right ventricle, and coronary sinus. There is bilateral gynecomastia. There are widespread sclerotic lesions of bone involving all bones with increased activity. Abdomen/pelvis/proximal thighs: There are cysts in the liver measuring up to 9 mm. Calcifications in the spleen are consistent with old granulomatous disease. The gallbladder, pancreas, and adrenal glands are normal. There is cortical thinning of right kidney. There is a 3.8 cm cyst in right kidney. There is a 2 mm stone in right kidney. There is a 12 mm stone in right renal pelvis. There are approximately 7 stones in left kidney measuring up to 6 mm. There is a left inguinal hernia containing fat. There is diverticulosis of the colon without evidence of diverticulitis. The appendix is normal. There are no dilated loops of bowel. There are no pathologically enlarged lymph nodes. There is increased activity in normal-sized aortocaval, left para-aortic, and bilateral common iliac lymph nodes. The prostate is mildly enlarged. There is increased activity in the prostate, consistent with primary malignancy. There is a stent in right superficial femoral artery. There is a stent in left superficial femoral artery. There are widespread sclerotic lesions of bone involving all bones with increased activity. IMPRESSION: 1. Mildly enlarged prostate with increased activity, consistent with primary malignancy. 2. Normal-sized retroperitoneal and left supraclavicular lymph nodes with increased activity and widespread bone lesions with increased activity, consistent with metastatic disease. Reviewed, dictated and finalized at location E. IMPRESSION: 1. Mildly enlarged prostate with increased activity, consistent with primary ma lignancy. 2. Normal-sized retroperitoneal and left supraclavicular lymph nodes with incre ased activity and widespread bone lesions with increased activity, consistent w ith metastatic disease.
== END 2025-07-04 13:50 | disposition home or self-care (01) ==
PROVIDERS: PCP Family Medicine; Visit Provider Urology
DX: C61 Malignant neoplasm of prostate (principal)
CPT/HCPCS: 78815; A9596

== ENCOUNTER 2025-09-02 14:05 | Outpatient (CLI) | payer MEDICARE, BC, SELFPAY ==
--- NOTE | ~2025-09-02 | XR_ITS ---
EXAMINATION: XR chest 2V, 09/02/2025 14:08 MANAGER FINE HISTORY: Prostate cancer COMPARISON: No comparisons available. Technique: 2 views obtained. Findings: Moderate pulmonary venous congestion. Small basilar infiltrates and effusions. No pneumothorax. Moderate cardiomegaly. Mediastinal and hilar contours are within normal limits. Bony thorax no acute abnormality. Left pacemaker. Impression: CHF. Superimposed probable pneumonia. Reviewed, dictated and finalized at location P. GER FINE Impression: CHF. Superimposed probable pneumonia.
== END 2025-09-02 14:06 | disposition home or self-care (01) ==
LOC: MICIMG 14:07
PROVIDERS: PCP Student in an Organized Health Care Education/Training Program; Visit Provider Urology
DX: I50.9 Heart failure, unspecified (principal); C61 Malignant neoplasm of prostate
CPT/HCPCS: 71046

== ENCOUNTER 2025-09-18 09:15 | Outpatient (CLI) | payer MEDICARE, BC, SELFPAY ==
--- NOTE | ~2025-09-18 | XR_ITS ---
XR chest 2V 09/18/2025 09:26 Indication: Pneumonia. Prostate cancer. Procedure: 2 view chest Comparison: Comparison to multiple prior studies sequentially, with oldest reviewed study dated 01/07/2008. Findings: Bibasilar airspace disease, compatible with pneumonia. Small pleural effusions. Diffuse widespread sclerosis of the bones, consistent with osseous metastases from known prostate cancer. Impression: 1: Bibasilar pneumonia with small pleural effusions. 2: Widespread osseous metastases. Reviewed, dictated and finalized at location O. CT OPENER AND FILLER Impression: 1: Bibasilar pneumonia with small pleural effusions. 2: Widespread osseous metastases.
== END 2025-09-18 09:16 | disposition home or self-care (01) ==
LOC: MICIMG 09:17
DX: J18.9 Pneumonia, unspecified organism (principal); J90 Pleural effusion, not elsewhere classified
CPT/HCPCS: 71046

== ENCOUNTER 2025-09-25 11:38 | Outpatient (CLI) | payer MEDICARE, BC, SELFPAY ==
--- NOTE | ~2025-09-25 | XR_ITS ---
XR chest 2V 09/25/2025 11:50 Indication: Prostate cancer. Procedure: 2 view chest Comparison: Comparison to multiple prior studies sequentially, with oldest reviewed study dated 06/02/2024. Findings: Diffuse sclerosis of the bones, consistent with widespread metastatic disease. Cardiomegaly. Pacemaker leads stable. Status post median sternotomy for CABG. Small pleural effusions. Bibasilar consolidation. There is evidence of chronic granulomatous disease. Impression: 1: Bibasilar airspace disease may represent atelectasis or pneumonia. 2: Small pleural effusions. 3: Widespread sclerotic metastases, presumably from prior prostate cancer. Reviewed, dictated and finalized at location O. RAM ASSISTANT Impression: 1: Bibasilar airspace disease may represent atelectasis or pneumonia. 2: Small pleural effusions. 3: Widespread sclerotic metastases, presumably from prior prostate cancer.
== END 2025-09-25 11:39 | disposition home or self-care (01) ==
PROVIDERS: Visit Provider Urology
DX: C61 Malignant neoplasm of prostate (principal); R91.8 Other nonspecific abnormal finding of lung field; J90 Pleural effusion, not elsewhere classified; C79.51 Secondary malignant neoplasm of bone
CPT/HCPCS: 71046